=== PATIENT | male | born 1985 | race American Indian/Alaskan Native ===

== ENCOUNTER 2019-09-29 19:03 | Emergency (ER) | payer MEDICAID ==
[2019-09-29] MEDS ORDERED: Metoprolol Tartrate 5 MG/5 ML SDV IVPUSH ONE (19:26)
[2019-09-29 19:51] LABS: ANION GAP 12.1; CHLORIDE,CL 95 mmol/L (101-111); SODIUM,NA 132 mmol/L (135-145)
[2019-09-29] MEDS ORDERED: Insulin Regular, Human 100 Units/ML 3 ML Vial IV ONE (20:11)
[2019-09-29] MEDS ORDERED: Metoprolol Succinate 25 MG Tab.ER PO ONE (22:05)
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
[2019-09-29 22:18] VITALS: BP 160/101; PULSE 90
== END 2019-09-29 22:19 | disposition home or self-care (01) ==
LOC: DL.ED 19:03
DX: E11.65 Type 2 diabetes mellitus with hyperglycemia (principal); I11.9 Hypertensive heart disease without heart failure; Z79.82 Long term (current) use of aspirin; Z79.4 Long term (current) use of insulin; Z79.899 Other long term (current) drug therapy
CPT/HCPCS: 36415; 70450; 80053; 82150; 82553; 82962; 83690; 83880; 84484; 85025; 93005; 96374; 99284; A9270; J1815; J3490

== ENCOUNTER 2020-01-22 18:12 | Emergency (ER) | payer MEDICAID ==
[2020-01-22 18:52] VITALS: BP 182/99; PULSE 98
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
[2020-01-22] MEDS ORDERED: Acetaminophen 325 MG Tab PO ONE (19:23)
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
== END 2020-01-22 19:36 | disposition home or self-care (01) ==
LOC: DL.ED 18:12
DX: S16.1XXA Strain of muscle, fascia and tendon at neck level, initial encounter (principal); E11.9 Type 2 diabetes mellitus without complications; I25.10 Atherosclerotic heart disease of native coronary artery without angina pectoris; I10 Essential (primary) hypertension; I25.2 Old myocardial infarction; Z79.82 Long term (current) use of aspirin; Z79.4 Long term (current) use of insulin; Z79.899 Other long term (current) drug therapy; V89.2XXA Person injured in unspecified motor-vehicle accident, traffic, initial encounter
CPT/HCPCS: 72125; 99284; A9270

== ENCOUNTER 2021-01-03 19:56 | Emergency (ER) | payer MEDICAID | END 2021-01-03 21:53 | disposition left against medical advice (07) | LOC: DL.ED 19:56 | DX: Z53.21 Procedure and treatment not carried out due to patient leaving prior to being seen by health care provider (principal) ==

== ENCOUNTER 2021-02-14 18:13 | Emergency (ER) | payer MEDICAID ==
[2021-02-14] MEDS ORDERED: Sodium Chloride 0.9% 10 ML Syringe FLUSH PRN (18:29)
[2021-02-14] MEDS ORDERED: Ketorolac 30 MG/ML SDV IVPUSH ONE (18:31)
--- NOTE | 2021-02-14 18:31 | EDM.PDOC ---
<LebronIshan yoderitalia Louise - Last Filed: 02/14/21 18:36> ED HPI GENERAL MEDICAL PROBLEM - General Chief Complaint: General Stated Complaint: LEFT HIP HURTS EVERYTIME HE GETS UP AND SITS DOWN. Time Seen by Provider: 02/14/21 18:36 Source of Information: Reports: Patient History Limitations: Reports: No Limitations - History of Present Illness INITIAL COMMENTS - FREE TEXT/NARRATIVE: Patient is unfortunate 35-year-old male who presents emerged part today with complaint of left lower quadrant abdominal pain. Patient reports he was in his normal state of health until approximately 4 hours prior to arrival when he started having pain in the left lower quadrant of his abdomen describes the pain as a sharp stabbing type pain, pain improves with sitting down worsens when he moves or stands, he has had no nausea no vomiting no diarrhea no hematemesis no hematochezia no melena no back pain no chest pain or shortness of breath he reports no trauma - Related Data Allergies Allergy/AdvReac Type Severity Reaction Status Date / Time No Known Allergies Allergy Verified 12/24/20 09:37 Home Meds: Home Meds metFORMIN [Glucophage] 1,000 mg PO BIDM 09/08/14 [History] Aspirin [Adult Low Dose Aspirin EC] 81 mg PO DAILY 09/09/19 [History] Insulin Detemir [Levemir] 50 units INJECT DAILY 09/09/19 [History] Nitroglycerin 0.4 mg PO ASDIRECTED PRN 09/09/19 [History] Metoprolol Succinate [Toprol XL] 25 mg PO DAILY 09/10/19 [History] hydroCHLOROthiazide [Hydrochlorothiazide] 25 mg PO DAILY 01/22/20 [History] lisinopriL [Lisinopril] 40 mg PO DAILY 01/22/20 [History] Insulin Detemir [Levemir] 40 units SUBCUT BEDTIME 02/14/21 [History] Past Medical History - Past Health History Medical/Surgical History: Denies Medical/Surgical History HEENT History: Reports: None Cardiovascular History: Reports: CAD, Hypertension, [place] Other Cardiovascular History: Pt states he had a "slight heart attack" in . States he was not hospitalized for this. Respiratory History: Reports: None Other Respiratory History: Tested positive for Covid 19 on 12/21/20 Gastrointestinal History: Reports: None Genitourinary History: Reports: None Musculoskeletal History: Reports: Other (See Below) Other Musculoskeletal History: chronic knee pain Neurological History: Reports: None Psychiatric History: Reports: None Endocrine/Metabolic History: Reports: Diabetes, Type II Hematologic History: Reports: None Immunologic History: Reports: None Oncologic (Cancer) History: Reports: None Dermatologic History: Reports: None - Infectious Disease History Infectious Disease History: Reports: Novel Coronavirus - Past Surgical History Head Surgeries/Procedures: Reports: None HEENT Surgical History: Reports: Tonsillectomy Cardiovascular Surgical History: Reports: None Respiratory Surgical History: Reports: None GI Surgical History: Reports: None Male Surgical History: Reports: None Endocrine Surgical History: Reports: None Neurological Surgical History: Reports: None Musculoskeletal Surgical History: Reports: None Oncologic Surgical History: Reports: None Social & Family History - Family History Family Medical History: No Pertinent Family History - Caffeine Use Caffeine Use: Reports: Coffee Caffeine Use Comment: rare ED ROS GENERAL - Review of Systems Review Of Systems: See Below Constitutional: Denies: Fever, Chills GI/Abdominal: Reports: Abdominal Pain. Denies: Decreased Appetite, Hematemesis, Melena, Nausea, Stool Incontinence, Vomiting ED EXAM, GENERAL - Physical Exam Exam: See Below Exam Limited By: No Limitations General Appearance: Alert, WD/WN, Mild Distress Nose: Normal Inspection, Normal Mucosa, No Blood Throat/Mouth: Normal Inspection, Normal Lips, Normal Teeth, Normal Gums, Normal Oropharynx, Normal Voice, No Airway Compromise Head: Atraumatic, Normocephalic Neck: Normal Inspection, Supple, Non-Tender, Full Range of Motion Respiratory/Chest: No Respiratory Distress, Lungs Clear, Normal Breath Sounds, No Accessory Muscle Use, Chest Non-Tender Cardiovascular: Normal Peripheral Pulses, Regular Rate, Rhythm, No Edema, No Gallop, No JVD, No Murmur, No Rub GI/Abdominal: Normal Bowel Sounds, Soft, Tender (Left lower quadrant moderate) Back Exam: Normal Inspection, Full Range of Motion, NT Extremities: Normal Inspection, Normal Range of Motion, Non-Tender, Normal Capillary Refill, No Pedal Edema Neurological: Alert, Oriented Skin Exam: Warm, Dry, No Rash Departure - Departure Disposition: Home, Self-Care 01 Clinical Impression: Enlarged lymph nodes, unspecified, Periportal lymphadenopathy Abdominal pain Qualifiers: Abdominal location: left lower quadrant Qualified Code(s): R10.32 - Left lower quadrant pain - Discharge Information Instructions: Lymphadenopathy, Abdominal Pain, Adult, [id number] Forms: ED Department Discharge Additional Instructions: Follow-up with your primary care provider this week for possible MRI of enlarged periportal, portocaval, retrocaval upper abdominal adenopathy. Monitor your blood sugars and treat accordingly Do not take your Metformin until specified on the form given to you after CT Return to the ER with any worsening of problems <Patricia Conklin - Last Filed: 02/14/21 23:36> ED HPI GENERAL MEDICAL PROBLEM - History of Present Illness INITIAL COMMENTS - FREE TEXT/NARRATIVE: Patient did state he has had bright red blood and "snotty" appearing stool for t he past 3 days. Course - Vital Signs Last Recorded V/S: Last Vital Signs Temp 99.2 F 02/14/21 18:27 Pulse 108 H 02/14/21 18:27 Resp 16 02/14/21 18:27 BP 149/82 H 02/14/21 18:27 Pulse Ox 98 02/14/21 18:27 - Orders/Labs/Meds Orders: Active Orders 24 hr Category Date Time Status Saline Lock Insert [OM.PC] Stat Oth 02/14/21 18:29 Ordered Labs: Laboratory Tests 02/14/21 02/14/21 02/14/21 Range/Units 18:36 18:36 20:02 WBC 11.9 H (5.0-10.0) 10^3/uL RBC 4.52 L (4.6-6.2) 10^6/uL Hgb 12.5 L (14.0-18.0) g/dL Hct 37.3 L (40.0-54.0) % MCV 82.5 (80-100) fL MCH 27.7 (27.0-34.0) pg MCHC 33.5 (33.0-35.0) g/dL Plt Count 309 (150-450) 10^3/uL Neut % (Auto) 62.7 (42.2-75.2) % Lymph % (Auto) 27.0 (20.5-50.1) % [place] % (Auto) 4.5 (2-8) % Eos % (Auto) 5.5 H (1.0-3.0) % Baso % (Auto) 0.3 (0.0-1.0) % Sodium 135 L (136-145) mmol/L Potassium 4.5 (3.5-5.1) mmol/L Chloride 99 (98-107) mmol/L Carbon Dioxide 26 (21-32) mmol/L Anion Gap 14.5 H (7-13) mEq/L BUN 19 H (7-18) mg/dL Creatinine 1.18 (0.70-1.30) mg/dL Est Cr Clr Drug Dosing 82.92 mL/min Estimated GFR (MDRD) > 60 BUN/Creatinine Ratio 16.1 (No establ ref range) Glucose 436 H* (70-99) mg/dL POC Glucose 319 H (70-99) mg/dL Calcium 8.5 (8.5-10.1) mg/dL Total Bilirubin 0.8 (0.2-1.0) mg/dL AST 27 (15-37) U/L ALT 63 (16-63) U/L Alkaline Phosphatase 86 (46-116) U/L Total Protein 7.6 (6.4-8.2) g/dL Albumin 3.3 L (3.4-5.0) g/dL Globulin 4.3 Albumin/Globulin Ratio 0.77 Meds: Medications Discontinued Medications Generic Name Dose Route Start Last Admin Trade Name Freq PRN Reason Stop Dose Admin Dextrose/Water 50 ml 02/14/21 19:21 50% Dextrose In Water 50 Ml Syringe IVPUSH Q15M PRN Hypoglycemia Glucagon 1 mg 02/14/21 19:21 Glucagon,Human Recombinant 1 Mg Vial IM Q15M PRN Hypoglycemia Hydromorphone HCl 1 mg 02/14/21 19:48 02/14/21 20:00 Hydromorphone 1 Mg/Ml Syringe IVPUSH 02/14/21 19:49 1 mg ONETIME ONE Administration Insulin Human Regular 10 unit 02/14/21 19:21 02/14/21 19:29 Insulin Regular, Human 100 Units/Ml 3 Ml Vial IV 02/14/21 19:22 10 units ONETIME ONE Administration Iopamidol 100 ml 02/14/21 18:56 02/14/21 19:00 Iopamidol 612 Mg/Ml 100 Ml Bottle IVPUSH 02/14/21 18:57 100 ml ONETIME ONE Administration Iopamidol 50 ml 02/14/21 19:03 Iopamidol 612 Mg/Ml 50 Ml Sdv IVPUSH 02/14/21 19:04 ONETIME ONE Ketorolac Tromethamine 30 mg 02/14/21 18:31 02/14/21 18:49 Ketorolac 30 Mg/Ml Sdv IVPUSH 02/14/21 18:32 30 mg ONETIME ONE Administration Sodium Chloride 10 ml 02/14/21 18:29 02/14/21 18:49 Sodium Chloride 0.9% 10 Ml Syringe FLUSH 10 ml ASDIRECTED PRN Administration Keep Vein Open - Radiology Interpretation Free Text/Narrative:: Abdomen/Pelvis CT with contrast: PROCEDURE INFORMATION: Exam: CT Abdomen And Pelvis With Contrast Exam date and time: 02/14/2021 7:14 PM Age: 35 years old Clinical indication: Other: Wbc 11,900; Additional info: Pain llq TECHNIQUE: Imaging protocol: Computed tomography of the abdomen and pelvis with contrast. Radiation optimization: All CT scans at this facility use at least one of these dose optimization techniques: automated exposure control; mA and/or kV adjustment per patient size (includes targeted exams where dose is matched to clinical indication); or iterative reconstructi on. Contrast material: ISOVUE3; Contrast volume: 150 ml; Contrast route: INTRAVENOUS (IV); COMPARISON: No relevant prior studies available. FINDINGS: Liver: Normal in architecture. No suspicious hepatic mass. Gallbladder and bile ducts: No calcified stones or local inflammation around the gallbladder. No ductal dilatation. Pancreas: Normal parenchymal bulk and the gland is sharply marginated. No local inflammation and ductal dilatation. No organized fluid collection, mass, or calcification. Spleen: The spleen is normal in size. No splenic mass or abnormal fluid collection. Adrenal glands: Normal. No mass. Kidneys and ureters: Both kidneys are normal in parenchymal bulk. No hydronephrosis, stone, or solid mass. Stomach and bowel: No significant abnormalities of the stomach. There are no dilated or thickened small bowel loops. Gas and stool are seen in the colon to the rectum. No mass. Appendix: The appendix is seen. It is normal. Intraperitoneal space: No pneumoperitoneum, ascites, mass or stranding of fat. Vasculature: There is atherosclerotic calcification of the aorto-iliac tree. There is no abdominal aortic aneurysm. Lymph nodes: Enlarged periportal, portal caval and retrocaval upper abdominal indeterminate adenopathy. The largest lymph node measures 2 cm in diameter. Urinary bladder: There is no bladder wall thickening, mass, or calculus. Reproductive: Prostate gland is normal in size. The seminal vesicles are unremarkable. Bones/joints: Age appropriate. No acute fracture. No dislocation. There are no suspicious lytic or osteosclerotic lesions. Soft tissues: There is a fat-containing umbilical hernia. IMPRESSION: Enlarged periportal, portal caval and retrocaval upper abdominal indeterminate adenopathy. These may be benign or malignant. Thank you for allowing us to participate in the care of your patient. Dictated and Authenticated by: Philippe Marcos MD 02/14/2021 7:36 PM Central Time ([place] & [place]) See rad report - Re-Assessments/Exams Free Text/Narrative Re-Assessment/Exam: 02/14/21 23:36 Patient stated improvement in pain. Departure - Departure Time of Disposition: 20:11 Condition: Good - Discharge Information *PRESCRIPTION DRUG MONITORING PROGRAM REVIEWED*: No *COPY OF PRESCRIPTION DRUG MONITORING REPORT IN PATIENT ELVIA: No Sepsis Event Note (ED) - Focused Exam Vital Signs: Vital Signs Temp Pulse Resp BP Pulse Ox 02/14/21 18:27 99.2 F 108 H 16 149/82 H 98
[2021-02-14 18:40] VITALS: BP 149/82; PULSE 108
[2021-02-14] MEDS ORDERED: Iopamidol 612 MG/ML 100 ML Bottle IVPUSH ONE (18:56)
[2021-02-14 19:01] LABS: ANION GAP 14.5 mEq/L (7-13); CHLORIDE,CL 99 mmol/L (98-107); SODIUM,NA 135 mmol/L (136-145)
[2021-02-14] MEDS ORDERED: Iopamidol 612 MG/ML 50 ML SDV IVPUSH ONE (19:03)
[2021-02-14] MEDS ORDERED: Glucagon,Human Recombinant 1 MG Vial IM PRN (19:21)
[2021-02-14] MEDS ORDERED: 50% Dextrose in Water 50 ML Syringe IVPUSH PRN (19:21)
[2021-02-14] MEDS ORDERED: Insulin Regular, Human 100 Units/ML 3 ML Vial IV ONE (19:21)
--- NOTE | 2021-02-14 19:37 | CT ---
PROCEDURE INFORMATION: Exam: CT Abdomen And Pelvis With Contrast Exam date and time: 02/14/2021 7:14 PM Age: 35 years old Clinical indication: Other: Wbc 11,900; Additional info: Pain llq TECHNIQUE: Imaging protocol: Computed tomography of the abdomen and pelvis with contrast. Radiation optimization: All CT scans at this facility use at least one of these dose optimization techniques: automated exposure control; mA and/or kV adjustment per patient size (includes targeted exams where dose is matched to clinical indication); or iterative reconstruction. Contrast material: ISOVUE3; Contrast volume: 150 ml; Contrast route: INTRAVENOUS (IV); COMPARISON: No relevant prior studies available. FINDINGS: Liver: Normal in architecture. No suspicious hepatic mass. Gallbladder and bile ducts: No calcified stones or local inflammation around the gallbladder. No ductal dilatation. Pancreas: Normal parenchymal bulk and the gland is sharply marginated. No local inflammation and ductal dilatation. No organized fluid collection, mass, or calcification. Spleen: The spleen is normal in size. No splenic mass or abnormal fluid collection. Adrenal glands: Normal. No mass. Kidneys and ureters: Both kidneys are normal in parenchymal bulk. No hydronephrosis, stone, or solid mass. Stomach and bowel: No significant abnormalities of the stomach. There are no dilated or thickened small bowel loops. Gas and stool are seen in the colon to the rectum. No mass. Appendix: The appendix is seen. It is normal. Intraperitoneal space: No pneumoperitoneum, ascites, mass or stranding of fat. Vasculature: There is atherosclerotic calcification of the aorto-iliac tree. There is no abdominal aortic aneurysm. Lymph nodes: Enlarged periportal, portal caval and retrocaval upper abdominal indeterminate adenopathy. The largest lymph node measures 2 cm in diameter. Urinary bladder: There is no bladder wall thickening, mass, or calculus. Reproductive: Prostate gland is normal in size. The seminal vesicles are unremarkable. Bones/joints: Age appropriate. No acute fracture. No dislocation. There are no suspicious lytic or osteosclerotic lesions. Soft tissues: There is a fat-containing umbilical hernia. IMPRESSION: Enlarged periportal, portal caval and retrocaval upper abdominal indeterminate adenopathy. These may be benign or malignant.
[2021-02-14] MEDS ORDERED: HYDROmorphone 1 MG/ML Syringe IVPUSH ONE (19:48)
== END 2021-02-14 20:21 | disposition home or self-care (01) ==
LOC: DL.ED 18:13
DX: R59.0 Localized enlarged lymph nodes (principal); I25.10 Atherosclerotic heart disease of native coronary artery without angina pectoris; I25.2 Old myocardial infarction; I10 Essential (primary) hypertension; E11.9 Type 2 diabetes mellitus without complications; Z79.82 Long term (current) use of aspirin; Z79.4 Long term (current) use of insulin; Z86.16 Personal history of COVID-19
CPT/HCPCS: 36415; 74177; 80053; 82272; 82947; 85025; 96374; 96375; 99284; J1170; J1815; J1885; Q9967

== ENCOUNTER 2022-03-22 13:36 | Emergency (ER) | payer MEDICAID ==
[2022-03-22] MEDS ORDERED: Sodium Chloride 0.9% 10 ML Syringe FLUSH PRN (13:46)
[2022-03-22 14:39] LABS: PTT,PARTIAL THROMBOPLSTIN TIME 25.9 SEC (22.0-34.0)
[2022-03-22 14:54] LABS: ANION GAP 10.5 mEq/L (7-13); CHLORIDE,CL 101 mmol/L (98-107); SODIUM,NA 132 mmol/L (136-145)
[2022-03-22 14:58] LABS: ESTIMATED GFR 80 mL/min (>=60)
[2022-03-22] MEDS ORDERED: Ketorolac 30 MG/ML SDV IM ONE (15:45)
[2022-03-22] MEDS ORDERED: Orphenadrine 60 MG/2 ML Inj IM ONE (15:45)
[2022-03-22 15:49] LABS: AMPHETAMINES,URINE NEGATIVE (NEGATIVE); BARBITURATES,URINE NEGATIVE (NEGATIVE); BENZODIAZEPINE,URINE NEGATIVE (NEGATIVE); MDMA (ECSTASY), URINE NEGATIVE (NEGATIVE); METHADONE,URINE NEGATIVE (NEGATIVE); METHAMPHETAMINES,URINE NEGATIVE (NEGATIVE); OPIATES,URINE POSITIVE (NEGATIVE); OXYCODONE,URINE NEGATIVE (NEGATIVE); PHENCYCLIDINE,URINE NEGATIVE (NEGATIVE); TCA,URINE NEGATIVE (NEGATIVE)
[2022-03-22 16:27] VITALS: BP 124/79; PULSE 90
== END 2022-03-22 16:20 | disposition home or self-care (01) ==
LOC: DL.ED 13:36
DX: R07.89 Other chest pain (principal); I25.10 Atherosclerotic heart disease of native coronary artery without angina pectoris; I10 Essential (primary) hypertension; I25.2 Old myocardial infarction; E11.9 Type 2 diabetes mellitus without complications; Z79.82 Long term (current) use of aspirin; Z79.84 Long term (current) use of oral hypoglycemic drugs; Z86.16 Personal history of COVID-19; Z79.4 Long term (current) use of insulin
CPT/HCPCS: 36415; 71045; 80053; 80305-QW; 80307; 81001; 83735; 83880; 84443; 84484; 85025; 85379; 85610; 85730; 93005; 96372; 99285; J1885; J2360

== ENCOUNTER 2023-02-26 10:42 | Emergency (ER) | payer MEDICAID ==
[2023-02-26 11:13] VITALS: BP 185/95; PULSE 92
== END 2023-02-26 11:11 | disposition home or self-care (01) ==
LOC: DL.ED 10:42
DX: L60.0 Ingrowing nail (principal); I25.10 Atherosclerotic heart disease of native coronary artery without angina pectoris; I25.2 Old myocardial infarction; I10 Essential (primary) hypertension; E11.9 Type 2 diabetes mellitus without complications; Z86.16 Personal history of COVID-19; Z79.899 Other long term (current) drug therapy; Z79.82 Long term (current) use of aspirin; Z79.4 Long term (current) use of insulin
CPT/HCPCS: 99283